=== PATIENT | female | born 2005 | race Caucasian/White ===

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

== ENCOUNTER 2025-07-16 11:58 | Outpatient (CLI) | payer OTHER, SELFPAY ==
[2025-07-16 22:55] LABS: Chlamydia DNA Amplified* NOT DETECTED (No Detected); GC DNA Amplified* NOT DETECTED (No Detected)
[2025-07-18 20:49] LABS: HPV Source Cervix
[2025-07-24 19:46] LABS: Pap Test Digital Imaging Done
== END 2025-07-16 11:59 | disposition home or self-care (01) ==
PROVIDERS: PCP Physician Assistant Medical; Visit Provider Physician Assistant Medical
DX: Z00.00 Encounter for general adult medical examination without abnormal findings (principal)
CPT/HCPCS: 87491; 87591; 87624; 87625; 88141; 88142; 88175